=== PATIENT | male | born 1955 | race Caucasian/White ===

== ENCOUNTER → 2018-02-14 | Outpatient (CLI) | payer OTHER ==
[~2018-02-14] VITALS: Ht 175.3 cm; Wt 86.2 kg
[~2018-02-14] MED LIST: ADDERALL15 MG PO; ADDERALL7.5 MG PO; PROZAC20 MG PO
== END | disposition home or self-care (01) ==
LOC: AMB 10:45
PROC: 0DJD8ZZ Inspection of Lower Intestinal Tract, Via Natural or Artificial Opening Endoscopic (ICD-10-PCS; principal; 2018-02-14)
DX: Z85.048 Personal history of other malignant neoplasm of rectum, rectosigmoid junction, and anus (principal); Z98.0 Intestinal bypass and anastomosis status
CPT/HCPCS: J7643